=== PATIENT | female | born 1985 | race Two or more races ===

== ENCOUNTER 2021-01-11 22:03 | Inpatient (IN) | payer MEDICAID, OTHER ==
[~2021-01-11] VITALS: Ht 154.9 cm; Wt 81.2 kg
[2021-01-11] MEDS ORDERED: DEXAMETHASONE 4 MG TABLET ONE (22:27)
[2021-01-11] MEDS ORDERED: ONDANSETRON ODT 8 MG ONE (22:28)
[2021-01-11] MEDS ORDERED: ACETAMINOPHEN 500 MG TABLET ONE (22:28)
[2021-01-11] MEDS ORDERED: ONDANSETRON ODT 8 MG PO ONE (22:30)
[2021-01-11] MEDS ORDERED: DEXAMETHASONE 4 MG TABLET PO ONE (22:30)
[2021-01-11] MEDS ORDERED: ACETAMINOPHEN 500 MG TABLET PO ONE (22:30)
[2021-01-11] MEDS ORDERED: SODIUM CHLORIDE FLUSH 10ML SYR IVF ONE (23:00)
[2021-01-11] MEDS ORDERED: AZITHROMYCIN 500 MG in SODIUM CHLORIDE 0.9% 250 ML IVPB ONE (23:00)
[2021-01-11] MEDS ORDERED: SODIUM CHLORIDE 0.9% 1,000ML IVBOLUS ONE (23:00)
[2021-01-11] MEDS ORDERED: CEFTRIAXONE 1,000 MG in DEXTROSE 5% 50 ML IVPB ONE (23:00)
--- NOTE | 2021-01-11 23:15 | NUR ---
IV STARTED, 1ST SET OF BLOOD CULTURES AND LABS DRAWN. IV FLUIDS INFUSING. PT TOLERATING WELL. VSS AND WILL CONT TO MONITOR.
[2021-01-11 23:42] LABS: BASOPHILS % (AUTO) 1 % (0-1); EOSINOPHILS % (AUTO) 0 % (1-7); LYMPHOCYTES % (AUTO) 33 % (22-44); MEAN CORPUSCULAR HEMOGLOBIN 29.5 pg (27.0-34.8); MEAN CORPUSCULAR HGB CONC 33.3 g/dL (32.4-35.8); MEAN PLATELET VOLUME 8.6 fL (7.4-10.4); MONOCYTES % (AUTO) 8 % (2-9); NEUTROPHILS % (AUTO) 58 % (42-75); PLATELET COUNT 135 x10^3/uL (130-400); RED CELL DISTRIBUTION WIDTH 13.6 % (9.6-15.2)
[2021-01-11 23:53] LABS: ALANINE AMINOTRANSFERASE 50 U/L (12-78); ALBUMIN 3.2 g/dL (3.4-5.0); ANION GAP 8 mmol/L (5-15); CALCIUM 8.4 mg/dL (8.5-10.1); CHLORIDE 103 mmol/L (98-107); CREATININE 0.75 mg/dL (0.55-1.02)
[2021-01-11 23:57] LABS: ALKALINE PHOSPHATASE 100 U/L (45-117); BILIRUBIN,TOTAL 0.6 mg/dL (0.2-1.0); TOTAL PROTEIN 7.2 g/dL (6.4-8.2)
[2021-01-12] MEDS ORDERED: PHARMACY MAY ADJ FOR RENAL FX MC PRN (02:00)
[2021-01-12] MEDS ORDERED: ONDANSETRON 2MG/ML, 2ML IVPush PRN (02:00)
[2021-01-12] MEDS ORDERED: PROCHLORPERAZINE 10MG TABLET PO PRN (02:00)
[2021-01-12] MEDS ORDERED: MELATONIN 5 MG TABLET PO PRN (02:00)
[2021-01-12 02:30] VITALS: BP 106/72
[2021-01-12] MEDS: methylPREDNISolone SOD SUCC 40 MG/ML IVPush SCH ×4 (02:45→20:17)
[2021-01-12] MEDS: ENOXAPARIN 40 MG/0.4 ML SQ SCH (02:46)
[2021-01-12 03:11] LABS: ALANINE AMINOTRANSFERASE 59 U/L (12-78); ALBUMIN 2.9 g/dL (3.4-5.0); ANION GAP 7 mmol/L (5-15); CALCIUM 7.5 mg/dL (8.5-10.1); CHLORIDE 106 mmol/L (98-107); CREATININE 0.69 mg/dL (0.55-1.02)
[2021-01-12 03:16] LABS: TROPONIN I < 0.015 ng/mL (0.000-0.045)
[2021-01-12 03:18] LABS: ALKALINE PHOSPHATASE 102 U/L (45-117); BILIRUBIN,TOTAL 0.5 mg/dL (0.2-1.0); TOTAL PROTEIN 6.8 g/dL (6.4-8.2)
[2021-01-12 03:27] LABS: BASOPHILS % (AUTO) 1 % (0-1); EOSINOPHILS % (AUTO) 0 % (1-7); LYMPHOCYTES % (AUTO) 28 % (22-44); MEAN CORPUSCULAR HEMOGLOBIN 30.1 pg (27.0-34.8); MEAN CORPUSCULAR HGB CONC 33.8 g/dL (32.4-35.8); MEAN PLATELET VOLUME 8.7 fL (7.4-10.4); MONOCYTES % (AUTO) 4 % (2-9); NEUTROPHILS % (AUTO) 68 % (42-75); PLATELET COUNT 131 x10^3/uL (130-400); RED BLOOD COUNT 4.72 x10^6/uL (3.82-5.3); RED CELL DISTRIBUTION WIDTH 13.8 % (9.6-15.2)
[2021-01-12] MEDS: ALBUTEROL-IPRATROPIUM MDI INH INH SCH ×4 (05:44→20:17)
[2021-01-12] MEDS ORDERED: ALBUTEROL-IPRATROPIUM MDI INH INH SCH (06:00)
[2021-01-12 06:51] LABS: D-DIMER 2.08 ug/mlFEU (0.00-0.52); INTERNATIONAL NORMALIZED RATIO 0.97 (0.93-1.1); PROTHROMBIN TIME 10.4 Seconds (9.6-11.5)
[2021-01-12 07:28] VITALS: BP 133/87
[2021-01-12] MEDS: ZINC SULFATE 220 MG CAPSULE PO SCH (08:21)
[2021-01-12] MEDS: ASCORBIC ACID 500 MG TABLET PO SCH ×2 (08:21→20:17)
[2021-01-12 12:00] VITALS: BP 119/76
[2021-01-12] MEDS: ACETAMINOPHEN 325 MG TABLET PO PRN (14:43)
[2021-01-12 20:00] VITALS: BP 117/75
[2021-01-13] MEDS: CEFTRIAXONE 1,000 MG in DEXTROSE 5% 50 ML IVPB SCH (00:05)
[2021-01-13 00:47] VITALS: BP 107/65
[2021-01-13] MEDS: AZITHROMYCIN 500 MG in SODIUM CHLORIDE 0.9% 250 ML IV SCH (01:01)
[2021-01-13] MEDS: ENOXAPARIN 40 MG/0.4 ML SQ SCH (02:00)
[2021-01-13] MEDS: ALBUTEROL-IPRATROPIUM MDI INH INH SCH ×4 (05:43→20:39)
[2021-01-13] MEDS: GUAIFENESIN/COD200MG-20MG/10ML LIQUID PO PRN ×3 (05:48→20:39)
[2021-01-13 06:02] LABS: HCT (SEDRATE) 41.2 % (34.6-47.8)
[2021-01-13 06:10] LABS: BASOPHILS % (AUTO) 0 % (0-1); EOSINOPHILS % (AUTO) 0 % (1-7); LYMPHOCYTES % (AUTO) 16 % (22-44); MEAN CORPUSCULAR HEMOGLOBIN 29.7 pg (27.0-34.8); MEAN CORPUSCULAR HGB CONC 33.3 g/dL (32.4-35.8); MEAN PLATELET VOLUME 8.8 fL (7.4-10.4); MONOCYTES % (AUTO) 6 % (2-9); NEUTROPHILS % (AUTO) 78 % (42-75); PLATELET COUNT 173 x10^3/uL (130-400); RED BLOOD COUNT 4.61 x10^6/uL (3.82-5.3); RED CELL DISTRIBUTION WIDTH 13.8 % (9.6-15.2)
[2021-01-13 06:29] LABS: CHLORIDE 111 mmol/L (98-107)
[2021-01-13 06:44] LABS: ALANINE AMINOTRANSFERASE 58 U/L (12-78); ALBUMIN 2.7 g/dL (3.4-5.0); ALKALINE PHOSPHATASE 92 U/L (45-117); ANION GAP 5 mmol/L (5-15); BILIRUBIN,TOTAL 0.3 mg/dL (0.2-1.0); CALCIUM 8.2 mg/dL (8.5-10.1); TOTAL PROTEIN 6.8 g/dL (6.4-8.2)
[2021-01-13 08:00] VITALS: BP 110/67
[2021-01-13] MEDS: ZINC SULFATE 220 MG CAPSULE PO SCH (08:37)
[2021-01-13] MEDS: methylPREDNISolone SOD SUCC 40 MG/ML IVPush SCH ×2 (08:38→20:39)
[2021-01-13] MEDS: ASCORBIC ACID 500 MG TABLET PO SCH ×2 (08:38→20:39)
[2021-01-13 14:00] VITALS: BP 110/67
[2021-01-13] MEDS: ALBUTEROL HFA 90 MCG/SPRAY INH SCH ×2 (16:00→20:39)
[2021-01-13] MEDS ORDERED: REMDESIVIR 200 MG in SODIUM CHLORIDE 0.9% 250 ML IVPB ONE (16:00)
[2021-01-13] MEDS ORDERED: OMNIPAQUE 350 MG/ML, 75ML BOTTLE ONE (16:51)
[2021-01-13 20:00] VITALS: BP 108/69
[2021-01-14] MEDS: CEFTRIAXONE 1,000 MG in DEXTROSE 5% 50 ML IVPB SCH (00:06)
[2021-01-14] MEDS ORDERED: PROPOFOL 10 MG/ML, 100ML IV ONE (00:42)
[2021-01-14] MEDS ORDERED: MIDAZOLAM 1 MG/ML, 5ML ONE (00:42)
[2021-01-14] MEDS ORDERED: ETOMIDATE 20 MG/10 ML ONE (00:42)
[2021-01-14] MEDS: AZITHROMYCIN 500 MG in SODIUM CHLORIDE 0.9% 250 ML IV SCH (00:58)
[2021-01-14 01:06] VITALS: BP 103/82
[2021-01-14] MEDS: ENOXAPARIN 40 MG/0.4 ML SQ SCH ×2 (01:59→20:06)
[2021-01-14] MEDS ORDERED: LORazepam 2 MG/ML, 1ML IVPush ONE (04:30)
[2021-01-14 05:36] LABS: HCT (SEDRATE) 40.5 % (34.6-47.8)
[2021-01-14 05:44] LABS: BASOPHILS % (AUTO) 0 % (0-1); EOSINOPHILS % (AUTO) 0 % (1-7); LYMPHOCYTES % (AUTO) 14 % (22-44); MEAN CORPUSCULAR HEMOGLOBIN 29.5 pg (27.0-34.8); MEAN CORPUSCULAR HGB CONC 33.2 g/dL (32.4-35.8); MEAN PLATELET VOLUME 8.3 fL (7.4-10.4); MONOCYTES % (AUTO) 7 % (2-9); NEUTROPHILS % (AUTO) 79 % (42-75); PLATELET COUNT 205 x10^3/uL (130-400); RED BLOOD COUNT 4.51 x10^6/uL (3.82-5.3); RED CELL DISTRIBUTION WIDTH 13.8 % (9.6-15.2)
[2021-01-14 05:48] LABS: CHLORIDE 104 mmol/L (98-107)
[2021-01-14 05:53] LABS: D-DIMER 7.01 ug/mlFEU (0.00-0.52); INTERNATIONAL NORMALIZED RATIO 0.96 (0.93-1.1); PROTHROMBIN TIME 10.3 Seconds (9.6-11.5)
[2021-01-14] MEDS: ALBUTEROL-IPRATROPIUM MDI INH INH SCH ×3 (06:00→16:00)
[2021-01-14] MEDS: ALBUTEROL HFA 90 MCG/SPRAY INH SCH ×3 (06:00→16:00)
[2021-01-14 06:02] LABS: ALANINE AMINOTRANSFERASE 193 U/L (12-78); ALBUMIN 2.6 g/dL (3.4-5.0); ALKALINE PHOSPHATASE 115 U/L (45-117); ANION GAP 7 mmol/L (5-15); BILIRUBIN,TOTAL 0.4 mg/dL (0.2-1.0); CALCIUM 7.7 mg/dL (8.5-10.1); CREATININE 0.62 mg/dL (0.55-1.02); TOTAL PROTEIN 6.6 g/dL (6.4-8.2)
[2021-01-14 07:13] VITALS: BP 117/75
[2021-01-14] MEDS ORDERED: DEXAMETHASONE 4 MG/ML, 1ML IVPush ONE (08:00)
[2021-01-14] MEDS ORDERED: ENOXAPARIN 40 MG/0.4 ML SQ SCH (08:00)
[2021-01-14] MEDS ORDERED: FUROSEMIDE 40 MG/4 ML IV ONE (08:00)
[2021-01-14] MEDS ORDERED: PHARMACY MAY ADJ FOR RENAL FX MC SCH (08:30)
[2021-01-14] MEDS ORDERED: LIDOCAINE-MPF 1%, 2ML ENDO PRN (08:30)
[2021-01-14] MEDS: ZINC SULFATE 220 MG CAPSULE PO SCH (09:00)
[2021-01-14] MEDS: ASCORBIC ACID 500 MG TABLET PO SCH ×2 (09:00→20:06)
[2021-01-14] MEDS: PROPOFOL 100 ML IV PRN ×2 (10:00→13:23)
[2021-01-14 10:10] LABS: MICROSCOPIC INDICATED
[2021-01-14] MEDS ORDERED: ACETAMINOPHEN 650 MG/20.3 ML UDC ONE (10:15)
[2021-01-14] MEDS ORDERED: MIDAZOLAM HCL 50 MG in SODIUM CHLORIDE 0.9% 40 ML IV PRN (10:30)
[2021-01-14] MEDS: ACETAMINOPHEN 650 MG/20.3 ML UDC PO PRN (11:44)
[2021-01-14] MEDS ORDERED: ETOMIDATE 20 MG/10 ML IVPush ONE (13:00)
[2021-01-14] MEDS: FAMOTIDINE 20 MG/2 ML IV SCH ×2 (13:23→20:05)
[2021-01-14] MEDS: POTASSIUM CHLORIDE 20 MEQ PACKET PO SCH ×2 (13:24→17:23)
[2021-01-14] MEDS: MIDAZOLAM HCL 100 MG in SODIUM CHLORIDE 0.9% 80 ML IV PRN (16:08)
[2021-01-14] MEDS ORDERED: FUROSEMIDE 40 MG/4 ML IV SCH (17:00)
[2021-01-14] MEDS: REMDESIVIR 100 MG in SODIUM CHLORIDE 0.9% 250 ML IVPB SCH (17:22)
[2021-01-14] MEDS: FUROSEMIDE 40 MG/4 ML IV SCH (20:05)
[2021-01-14] MEDS: NOREPINEPHRINE 8 MG in SODIUM CHLORIDE 0.9% 242 ML IV PRN (21:00)
[2021-01-14] MEDS ORDERED: ATROPINE SYRINGE 0.1 MG/ML, 10ML ONE (22:27)
[2021-01-15] MEDS: CEFTRIAXONE 1,000 MG in DEXTROSE 5% 50 ML IVPB SCH
[2021-01-15 03:46] LABS: MEAN CORPUSCULAR HEMOGLOBIN 29.4 pg (27.0-34.8); MEAN CORPUSCULAR HGB CONC 33.3 g/dL (32.4-35.8); MEAN PLATELET VOLUME 7.8 fL (7.4-10.4); PLATELET COUNT 245 x10^3/uL (130-400); RED BLOOD COUNT 4.42 x10^6/uL (3.82-5.3); RED CELL DISTRIBUTION WIDTH 13.6 % (9.6-15.2)
[2021-01-15 03:58] LABS: ALANINE AMINOTRANSFERASE 162 U/L (12-78); ALBUMIN 2.4 g/dL (3.4-5.0); ANION GAP 5 mmol/L (5-15); CALCIUM 7.5 mg/dL (8.5-10.1); CHLORIDE 106 mmol/L (98-107); CREATININE 0.67 mg/dL (0.55-1.02)
[2021-01-15 04:04] LABS: ALKALINE PHOSPHATASE 112 U/L (45-117); BILIRUBIN,TOTAL 0.4 mg/dL (0.2-1.0); TOTAL PROTEIN 6.3 g/dL (6.4-8.2)
[2021-01-15 04:32] LABS: BAND#(MANUAL) 0.91 x10^3/uL; BANDS%(MANUAL) 7 % (0-7); LYMPH#(MANUAL) 1.56 x10^3/uL (1-3.4); LYMPHS% (MANUAL) 12 % (22-44); METAMYELOCYTES# (MANUAL) 0.13 x10^3/uL (0-0); METAMYELOCYTES% (MANUAL) 1 % (0-1); MONOS#(MANUAL) 0.52 x10^3/uL (0.3-2.7); MONOS% (MANUAL) 4 % (2-9); MYELOCYTES# (MANUAL) 0.13 x10^3/uL (0-0); MYELOCYTES% (MANUAL) 1 % (0-0); SEG#(MANUAL) 9.75 x10^3/uL (1.8-6.8); SEGS% (MANUAL) 75 % (42-75)
[2021-01-15 04:33] LABS: <PLATELET ESTIMATE> ADEQUATE; <PLT MORPHOLOGY> NORMAL PLT MORPH; <RBC MORPHOLOGY> NORMAL
[2021-01-15] MEDS: POTASSIUM CHLORIDE 20 MEQ PACKET PO SCH (08:30)
[2021-01-15] MEDS: DEXAMETHASONE 4 MG/ML, 1ML IVPush SCH (08:30)
[2021-01-15] MEDS: ZINC SULFATE 220 MG CAPSULE PO SCH (08:30)
[2021-01-15] MEDS: AZITHROMYCIN 500 MG TABLET PO SCH (08:30)
[2021-01-15] MEDS: FUROSEMIDE 40 MG/4 ML IV SCH ×2 (08:30→19:51)
[2021-01-15] MEDS: ASCORBIC ACID 500 MG TABLET PO SCH ×2 (08:30→19:51)
[2021-01-15] MEDS: THIAMINE 100MG TABLET PO SCH (08:30)
[2021-01-15] MEDS: FAMOTIDINE 20 MG/2 ML IV SCH ×2 (08:31→19:51)
[2021-01-15] MEDS: ENOXAPARIN 40 MG/0.4 ML SQ SCH (08:32)
[2021-01-15] MEDS: CHOLECALCIFEROL 5,000u TAB PO SCH (08:32)
[2021-01-15] MEDS: AcetaZOLAMIDE INJ 500 MG IVPush SCH ×2 (08:33→19:51)
[2021-01-15] MEDS ORDERED: VASOPRESSIN 20 UNIT in SODIUM CHLORIDE 0.9% 99 ML IV PRN (09:30)
[2021-01-15] MEDS: MIDAZOLAM HCL 100 MG in SODIUM CHLORIDE 0.9% 80 ML IV PRN (09:56)
[2021-01-15] MEDS ORDERED: FILTER 0.22 MICRON IV ONE (10:30)
[2021-01-15] MEDS ORDERED: TOCILIZUMAB 600 MG in SODIUM CHLORIDE 0.9% 100 ML IVPB ONE (10:30)
--- NOTE | 2021-01-15 10:50 | NUR ---
TF per RD: Vital HP w/ end goal rate of 45 mL/hr (ON propofol); 50 mL/hr (OFF propofol). Addendum: 01/15/21 at [address] Amended: Links added.
[2021-01-15] MEDS: PROPOFOL 100 ML IV PRN (12:04)
[2021-01-15] MEDS: ACETAMINOPHEN 650 MG/20.3 ML UDC PO PRN (12:17)
[2021-01-15] MEDS: REMDESIVIR 100 MG in SODIUM CHLORIDE 0.9% 250 ML IVPB SCH (15:15)
[2021-01-15] MEDS: ENOXAPARIN 80 MG/0.8 ML SQ SCH (19:51)
[2021-01-15] MEDS ORDERED: POTASSIUM CHLORIDE 20 MEQ PACKET PO ONE (21:00)
[2021-01-16] MEDS: CEFTRIAXONE 1,000 MG in DEXTROSE 5% 50 ML IVPB SCH
[2021-01-16 04:19] LABS: BASOPHILS % (AUTO) 0 % (0-1); EOSINOPHILS % (AUTO) 0 % (1-7); LYMPHOCYTES % (AUTO) 16 % (22-44); MEAN CORPUSCULAR HEMOGLOBIN 29.5 pg (27.0-34.8); MEAN CORPUSCULAR HGB CONC 32.8 g/dL (32.4-35.8); MONOCYTES % (AUTO) 12 % (2-9); NEUTROPHILS % (AUTO) 71 % (42-75); PLATELET COUNT 312 x10^3/uL (130-400); RED BLOOD COUNT 4.63 x10^6/uL (3.82-5.3); RED CELL DISTRIBUTION WIDTH 13.9 % (9.6-15.2)
[2021-01-16 04:30] LABS: ALANINE AMINOTRANSFERASE 128 U/L (12-78); ALBUMIN 2.5 g/dL (3.4-5.0); ANION GAP 4 mmol/L (5-15); CALCIUM 7.9 mg/dL (8.5-10.1); CHLORIDE 112 mmol/L (98-107); CREATININE 0.69 mg/dL (0.55-1.02)
[2021-01-16 04:32] LABS: ALKALINE PHOSPHATASE 121 U/L (45-117); BILIRUBIN,TOTAL 0.4 mg/dL (0.2-1.0); TOTAL PROTEIN 6.9 g/dL (6.4-8.2)
[2021-01-16] MEDS ORDERED: POTASSIUM CHLORIDE 20 MEQ PACKET ONE (08:01)
[2021-01-16] MEDS: ZINC SULFATE 220 MG CAPSULE PO SCH (08:04)
[2021-01-16] MEDS: ENOXAPARIN 80 MG/0.8 ML SQ SCH ×2 (08:04→21:00)
[2021-01-16] MEDS: ASCORBIC ACID 500 MG TABLET PO SCH ×2 (08:04→20:59)
[2021-01-16] MEDS: DEXAMETHASONE 4 MG/ML, 1ML IVPush SCH (08:04)
[2021-01-16] MEDS: FUROSEMIDE 40 MG/4 ML IV SCH ×2 (08:05→20:59)
[2021-01-16] MEDS: POTASSIUM CHLORIDE 20 MEQ PACKET PO SCH ×2 (08:05→20:59)
[2021-01-16] MEDS: AZITHROMYCIN 500 MG TABLET PO SCH (08:05)
[2021-01-16] MEDS: CHOLECALCIFEROL 5,000u TAB PO SCH (08:05)
[2021-01-16] MEDS: FAMOTIDINE 20 MG/2 ML IV SCH ×2 (08:05→20:59)
[2021-01-16] MEDS: THIAMINE 100MG TABLET PO SCH (08:05)
[2021-01-16] MEDS: CEFTRIAXONE 2 GM in DEXTROSE 5% 50 ML IVPB SCH (10:48)
[2021-01-16] MEDS: DOCUSATE 50 MG/5 ML, 10ML UDC PO SCH (12:25)
[2021-01-16] MEDS: REMDESIVIR 100 MG in SODIUM CHLORIDE 0.9% 250 ML IVPB SCH (14:03)
[2021-01-16] MEDS: LACTULOSE 20 GM/30 ML UDC PO PRN (20:59)
[2021-01-16] MEDS ORDERED: BISACODYL 10 MG SUPP PR PRN (21:00)
[2021-01-16] MEDS: SENNA 176 MG/5 ML ORAL SOL PO SCH (21:00)
[2021-01-16] MEDS: MIDAZOLAM HCL 100 MG in SODIUM CHLORIDE 0.9% 80 ML IV PRN (23:12)
[2021-01-17] MEDS: PROPOFOL 100 ML IV PRN ×2 (01:00→11:07)
[2021-01-17 04:28] LABS: MEAN CORPUSCULAR HEMOGLOBIN 29.5 pg (27.0-34.8); MEAN CORPUSCULAR HGB CONC 33.1 g/dL (32.4-35.8); MEAN PLATELET VOLUME 7.9 fL (7.4-10.4); PLATELET COUNT 468 x10^3/uL (130-400); RED BLOOD COUNT 5.17 x10^6/uL (3.82-5.3); RED CELL DISTRIBUTION WIDTH 14.2 % (9.6-15.2)
[2021-01-17 04:35] LABS: ALANINE AMINOTRANSFERASE 154 U/L (12-78); ALBUMIN 2.9 g/dL (3.4-5.0); ANION GAP 6 mmol/L (5-15); CHLORIDE 109 mmol/L (98-107)
[2021-01-17 04:38] LABS: ALKALINE PHOSPHATASE 150 U/L (45-117); BILIRUBIN,TOTAL 0.4 mg/dL (0.2-1.0); CREATININE 0.84 mg/dL (0.55-1.02); TOTAL PROTEIN 7.9 g/dL (6.4-8.2); TRIGLYCERIDES 196 mg/dL (50-200)
[2021-01-17 04:53] LABS: <PLATELET ESTIMATE> ADEQUATE; <PLT MORPHOLOGY> NORMAL PLT MORPH; <RBC MORPHOLOGY> NORMAL; BAND#(MANUAL) 0.38 x10^3/uL; BANDS%(MANUAL) 2 % (0-7); LYMPH#(MANUAL) 3.78 x10^3/uL (1-3.4); LYMPHS% (MANUAL) 20 % (22-44); METAMYELOCYTES# (MANUAL) 0.57 x10^3/uL (0-0); METAMYELOCYTES% (MANUAL) 3 % (0-1); MONOS#(MANUAL) 0.95 x10^3/uL (0.3-2.7); MONOS% (MANUAL) 5 % (2-9); MYELOCYTES# (MANUAL) 0.38 x10^3/uL (0-0); MYELOCYTES% (MANUAL) 2 % (0-0); SEG#(MANUAL) 12.85 x10^3/uL (1.8-6.8); SEGS% (MANUAL) 68 % (42-75)
[2021-01-17] MEDS ORDERED: INSULIN LISPRO 100 UNITS/ML, PEN SQ-INSULIN SCH (07:00)
[2021-01-17] MEDS: AZITHROMYCIN 500 MG TABLET PO SCH (08:44)
[2021-01-17] MEDS: ZINC SULFATE 220 MG CAPSULE PO SCH (08:44)
[2021-01-17] MEDS: DEXAMETHASONE 4 MG/ML, 1ML IVPush SCH (08:44)
[2021-01-17] MEDS: DOCUSATE 50 MG/5 ML, 10ML UDC PO SCH (08:44)
[2021-01-17] MEDS: FAMOTIDINE 20 MG/2 ML IV SCH ×2 (08:44→21:41)
[2021-01-17] MEDS: ENOXAPARIN 80 MG/0.8 ML SQ SCH ×2 (08:44→21:41)
[2021-01-17] MEDS: THIAMINE 100MG TABLET PO SCH (08:44)
[2021-01-17] MEDS: ASCORBIC ACID 500 MG TABLET PO SCH ×2 (08:45→21:00)
[2021-01-17] MEDS: CHOLECALCIFEROL 5,000u TAB PO SCH (08:45)
[2021-01-17] MEDS: FUROSEMIDE 40 MG/4 ML IV SCH ×2 (08:45→21:41)
[2021-01-17] MEDS: POTASSIUM CHLORIDE 20 MEQ PACKET PO SCH ×2 (08:45→21:42)
[2021-01-17] MEDS: INSULIN LISPRO 100 UNITS/ML, PEN SQ-INSULIN SCH ×3 (08:48→21:42)
[2021-01-17] MEDS: CEFTRIAXONE 2 GM in DEXTROSE 5% 50 ML IVPB SCH (11:07)
[2021-01-17] MEDS: REMDESIVIR 100 MG in SODIUM CHLORIDE 0.9% 250 ML IVPB SCH (16:29)
[2021-01-17] MEDS: SENNA 176 MG/5 ML ORAL SOL PO SCH (21:00)
[2021-01-18] MEDS: INSULIN LISPRO 100 UNITS/ML, PEN SQ-INSULIN SCH ×4 (03:50→21:20)
[2021-01-18 04:13] LABS: MEAN CORPUSCULAR HEMOGLOBIN 29.3 pg (27.0-34.8); MEAN CORPUSCULAR HGB CONC 32.6 g/dL (32.4-35.8); MEAN PLATELET VOLUME 7.8 fL (7.4-10.4); PLATELET COUNT 524 x10^3/uL (130-400); RED BLOOD COUNT 5.37 x10^6/uL (3.82-5.3); RED CELL DISTRIBUTION WIDTH 14.2 % (9.6-15.2)
[2021-01-18 04:25] LABS: ALBUMIN 3.1 g/dL (3.4-5.0); ANION GAP 7 mmol/L (5-15); CALCIUM 9.3 mg/dL (8.5-10.1); CHLORIDE 109 mmol/L (98-107)
[2021-01-18 04:30] LABS: ALANINE AMINOTRANSFERASE 123 U/L (12-78); ALKALINE PHOSPHATASE 138 U/L (45-117); BILIRUBIN,TOTAL 0.4 mg/dL (0.2-1.0); CREATININE 1.07 mg/dL (0.55-1.02); TOTAL PROTEIN 7.9 g/dL (6.4-8.2)
[2021-01-18 05:42] LABS: BANDS%(MANUAL) 3 % (0-7); EOS% (MANUAL) 3 % (1-7); LYMPH#(MANUAL) 1.34 x10^3/uL (1-3.4); LYMPHS% (MANUAL) 8 % (22-44); METAMYELOCYTES# (MANUAL) 0.17 x10^3/uL (0-0); METAMYELOCYTES% (MANUAL) 1 % (0-1); MONOS% (MANUAL) 6 % (2-9); SEG#(MANUAL) 13.19 x10^3/uL (1.8-6.8); SEGS% (MANUAL) 79 % (42-75)
[2021-01-18 05:43] LABS: <PLATELET ESTIMATE> INCREASED; <PLT MORPHOLOGY> NORMAL PLT MORPH; <RBC MORPHOLOGY> NORMAL
[2021-01-18] MEDS: DOCUSATE 50 MG/5 ML, 10ML UDC PO SCH (09:00)
[2021-01-18] MEDS ORDERED: FUROSEMIDE 20 MG/2 ML ONE (10:33)
[2021-01-18] MEDS: ZINC SULFATE 220 MG CAPSULE PO SCH (10:36)
[2021-01-18] MEDS: ENOXAPARIN 80 MG/0.8 ML SQ SCH ×2 (10:36→21:12)
[2021-01-18] MEDS: ASCORBIC ACID 500 MG TABLET PO SCH ×2 (10:36→21:12)
[2021-01-18] MEDS: FAMOTIDINE 20 MG/2 ML IV SCH ×2 (10:36→21:12)
[2021-01-18] MEDS: DEXAMETHASONE 4 MG/ML, 1ML IVPush SCH (10:37)
[2021-01-18] MEDS: CHOLECALCIFEROL 5,000u TAB PO SCH (10:37)
[2021-01-18] MEDS: FUROSEMIDE 40 MG/4 ML IV SCH ×2 (10:37→21:12)
[2021-01-18] MEDS: THIAMINE 100MG TABLET PO SCH (10:59)
[2021-01-18] MEDS ORDERED: CEFTRIAXONE 2 GM in DEXTROSE 5% 50 ML IVPB SCH (11:00)
[2021-01-18] MEDS: PROPOFOL 100 ML IV PRN ×3 (11:33→23:39)
[2021-01-19] MEDS: PROPOFOL 100 ML IV PRN ×4 (03:25→20:08)
[2021-01-19] MEDS: INSULIN LISPRO 100 UNITS/ML, PEN SQ-INSULIN SCH ×4 (04:16→20:00)
[2021-01-19 04:26] LABS: MEAN CORPUSCULAR HEMOGLOBIN 29.8 pg (27.0-34.8); MEAN CORPUSCULAR HGB CONC 33.4 g/dL (32.4-35.8); MEAN PLATELET VOLUME 7.9 fL (7.4-10.4); PLATELET COUNT 565 x10^3/uL (130-400); RED BLOOD COUNT 5.59 x10^6/uL (3.82-5.3)
[2021-01-19 04:38] LABS: ALANINE AMINOTRANSFERASE 84 U/L (12-78); ALBUMIN 3.1 g/dL (3.4-5.0); ANION GAP 9 mmol/L (5-15); CHLORIDE 106 mmol/L (98-107); CREATININE 0.98 mg/dL (0.55-1.02)
[2021-01-19 04:40] LABS: ALKALINE PHOSPHATASE 119 U/L (45-117); BILIRUBIN,TOTAL 0.5 mg/dL (0.2-1.0); TOTAL PROTEIN 7.8 g/dL (6.4-8.2)
[2021-01-19 05:48] LABS: BAND#(MANUAL) 0.22 x10^3/uL; BANDS%(MANUAL) 1 % (0-7); EOS% (MANUAL) 6 % (1-7); LYMPH#(MANUAL) 2.59 x10^3/uL (1-3.4); LYMPHS% (MANUAL) 12 % (22-44); MONOS#(MANUAL) 0.65 x10^3/uL (0.3-2.7); MONOS% (MANUAL) 3 % (2-9); SEG#(MANUAL) 16.85 x10^3/uL (1.8-6.8); SEGS% (MANUAL) 78 % (42-75)
[2021-01-19 05:50] LABS: <PLATELET ESTIMATE> INCREASED; <RBC MORPHOLOGY> NORMAL
[2021-01-19 05:51] LABS: <PLT MORPHOLOGY> NORMAL PLT MORPH
[2021-01-19] MEDS ORDERED: INSULIN GLARGINE 100 UNITS/ML, PEN SQ-INSULIN SCH ×2 (09:00→21:00)
[2021-01-19] MEDS: FUROSEMIDE 40 MG/4 ML IV SCH (09:34)
[2021-01-19] MEDS: FAMOTIDINE 20 MG/2 ML IV SCH ×2 (09:34→19:58)
[2021-01-19] MEDS: DEXAMETHASONE 4 MG/ML, 1ML IVPush SCH (09:34)
[2021-01-19] MEDS: DOCUSATE 50 MG/5 ML, 10ML UDC PO SCH (09:34)
[2021-01-19] MEDS: ZINC SULFATE 220 MG CAPSULE PO SCH (09:35)
[2021-01-19] MEDS: THIAMINE 100MG TABLET PO SCH (09:35)
[2021-01-19] MEDS: ENOXAPARIN 80 MG/0.8 ML SQ SCH ×2 (09:35→19:58)
[2021-01-19] MEDS: ASCORBIC ACID 500 MG TABLET PO SCH ×2 (09:35→19:59)
[2021-01-19] MEDS: CHOLECALCIFEROL 5,000u TAB PO SCH (09:35)
[2021-01-20] MEDS: PROPOFOL 100 ML IV PRN ×2 (00:57→04:02)
[2021-01-20] MEDS: INSULIN LISPRO 100 UNITS/ML, PEN SQ-INSULIN SCH ×6 (03:13→21:59)
[2021-01-20 03:47] LABS: MEAN CORPUSCULAR HGB CONC 33.6 g/dL (32.4-35.8); MEAN PLATELET VOLUME 8.3 fL (7.4-10.4); PLATELET COUNT 477 x10^3/uL (130-400); RED BLOOD COUNT 5.16 x10^6/uL (3.82-5.3); RED CELL DISTRIBUTION WIDTH 13.8 % (9.6-15.2)
[2021-01-20 04:03] LABS: ALBUMIN 1.9 g/dL (3.4-5.0); ANION GAP 5 mmol/L (5-15); CALCIUM 9.1 mg/dL (8.5-10.1); CHLORIDE 105 mmol/L (98-107)
[2021-01-20 04:08] LABS: ALANINE AMINOTRANSFERASE 58 U/L (12-78); ALKALINE PHOSPHATASE 103 U/L (45-117); BILIRUBIN,TOTAL 0.6 mg/dL (0.2-1.0); C-REACTIVE PROTEIN, QUANT 0.38 mg/dL (0.02-0.49); CREATININE 0.93 mg/dL (0.55-1.02); TRIGLYCERIDES 526 mg/dL (50-200)
[2021-01-20 05:46] LABS: BAND#(MANUAL) 0.17 x10^3/uL; BANDS%(MANUAL) 1 % (0-7); EOS#(MANUAL) 0.84 x10^3/uL (0.0-0.4); EOS% (MANUAL) 5 % (1-7); LYMPH#(MANUAL) 1.01 x10^3/uL (1-3.4); LYMPHS% (MANUAL) 6 % (22-44); METAMYELOCYTES# (MANUAL) 0.17 x10^3/uL (0-0); METAMYELOCYTES% (MANUAL) 1 % (0-1); MONOS#(MANUAL) 0.17 x10^3/uL (0.3-2.7); MONOS% (MANUAL) 1 % (2-9); MYELOCYTES# (MANUAL) 0.17 x10^3/uL (0-0); MYELOCYTES% (MANUAL) 1 % (0-0); SEG#(MANUAL) 14.28 x10^3/uL (1.8-6.8); SEGS% (MANUAL) 85 % (42-75)
[2021-01-20 05:47] LABS: <PLATELET ESTIMATE> INCREASED; <PLT MORPHOLOGY> NORMAL PLT MORPH; <RBC MORPHOLOGY> NORMAL
[2021-01-20] MEDS: MIDAZOLAM HCL 50 MG in SODIUM CHLORIDE 0.9% 40 ML IV PRN (06:28)
[2021-01-20] MEDS: ENOXAPARIN 80 MG/0.8 ML SQ SCH ×2 (10:09→21:58)
[2021-01-20] MEDS: DOCUSATE 50 MG/5 ML, 10ML UDC PO SCH (10:10)
[2021-01-20] MEDS: ASCORBIC ACID 500 MG TABLET PO SCH ×2 (10:10→21:57)
[2021-01-20] MEDS: CHOLECALCIFEROL 5,000u TAB PO SCH (10:10)
[2021-01-20] MEDS: ZINC SULFATE 220 MG CAPSULE PO SCH (10:10)
[2021-01-20] MEDS: THIAMINE 100MG TABLET PO SCH (10:10)
[2021-01-20] MEDS: FUROSEMIDE 40 MG/4 ML IV SCH (10:12)
[2021-01-20] MEDS: DEXAMETHASONE 4 MG/ML, 1ML IVPush SCH (10:12)
[2021-01-20] MEDS: FAMOTIDINE 20 MG/2 ML IV SCH ×2 (10:12→21:57)
[2021-01-20] MEDS: INSULIN GLARGINE 100 UNITS/ML, PEN SQ-INSULIN SCH ×2 (10:18→21:59)
[2021-01-21] MEDS: MIDAZOLAM HCL 50 MG in SODIUM CHLORIDE 0.9% 40 ML IV PRN ×2 (02:27→12:46)
[2021-01-21 03:44] LABS: MEAN CORPUSCULAR HEMOGLOBIN 29.5 pg (27.0-34.8); MEAN CORPUSCULAR HGB CONC 32.6 g/dL (32.4-35.8); MEAN PLATELET VOLUME 7.9 fL (7.4-10.4); PLATELET COUNT 433 x10^3/uL (130-400); RED BLOOD COUNT 5.04 x10^6/uL (3.82-5.3)
[2021-01-21 03:53] LABS: ALBUMIN 2.8 g/dL (3.4-5.0); ANION GAP 2 mmol/L (5-15); CALCIUM 9.1 mg/dL (8.5-10.1); CHLORIDE 105 mmol/L (98-107)
[2021-01-21 03:57] LABS: ALANINE AMINOTRANSFERASE 44 U/L (12-78); ALKALINE PHOSPHATASE 92 U/L (45-117); BILIRUBIN,TOTAL 0.8 mg/dL (0.2-1.0); CREATININE 0.94 mg/dL (0.55-1.02); TOTAL PROTEIN 6.9 g/dL (6.4-8.2)
[2021-01-21] MEDS: INSULIN LISPRO 100 UNITS/ML, PEN SQ-INSULIN SCH ×8 (04:13→21:09)
[2021-01-21 04:30] LABS: <PLATELET ESTIMATE> INCREASED; <PLT MORPHOLOGY> NORMAL PLT MORPH; <RBC MORPHOLOGY> NORMAL; BAND#(MANUAL) 0.69 x10^3/uL; BANDS%(MANUAL) 4 % (0-7); EOS#(MANUAL) 0.17 x10^3/uL (0.0-0.4); EOS% (MANUAL) 1 % (1-7); LYMPH#(MANUAL) 1.38 x10^3/uL (1-3.4); LYMPHS% (MANUAL) 8 % (22-44); METAMYELOCYTES# (MANUAL) 0.17 x10^3/uL (0-0); METAMYELOCYTES% (MANUAL) 1 % (0-1); MONOS#(MANUAL) 0.35 x10^3/uL (0.3-2.7); MONOS% (MANUAL) 2 % (2-9); SEG#(MANUAL) 14.53 x10^3/uL (1.8-6.8); SEGS% (MANUAL) 84 % (42-75)
[2021-01-21] MEDS: DOCUSATE 50 MG/5 ML, 10ML UDC PO SCH (09:00)
[2021-01-21] MEDS: ASCORBIC ACID 500 MG TABLET PO SCH ×2 (10:44→21:07)
[2021-01-21] MEDS: CHOLECALCIFEROL 5,000u TAB PO SCH (10:44)
[2021-01-21] MEDS: ZINC SULFATE 220 MG CAPSULE PO SCH (10:44)
[2021-01-21] MEDS: FUROSEMIDE 40 MG/4 ML IV SCH (10:45)
[2021-01-21] MEDS: ENOXAPARIN 80 MG/0.8 ML SQ SCH ×2 (10:45→21:08)
[2021-01-21] MEDS: FAMOTIDINE 20 MG/2 ML IV SCH ×2 (10:45→21:07)
[2021-01-21] MEDS: DEXAMETHASONE 4 MG/ML, 1ML IVPush SCH (10:45)
[2021-01-21] MEDS: THIAMINE 100MG TABLET PO SCH (10:45)
[2021-01-21] MEDS: INSULIN GLARGINE 100 UNITS/ML, PEN SQ-INSULIN SCH ×2 (10:46→21:08)
[2021-01-21 13:04] LABS: MICROSCOPIC AUTO
[2021-01-21] MEDS: ACETAMINOPHEN 650 MG/20.3 ML UDC PO PRN (19:40)
[2021-01-22] MEDS: FENTANYL PF 100 MCG/2ML IVPush PRN ×2 (00:29→15:04)
[2021-01-22] MEDS: MIDAZOLAM HCL 50 MG in SODIUM CHLORIDE 0.9% 40 ML IV PRN ×2 (01:28→15:04)
[2021-01-22] MEDS: ACETAMINOPHEN 650 MG/20.3 ML UDC PO PRN ×2 (01:28→22:34)
[2021-01-22] MEDS: INSULIN LISPRO 100 UNITS/ML, PEN SQ-INSULIN SCH ×8 (03:26→22:11)
[2021-01-22 03:36] LABS: MEAN CORPUSCULAR HEMOGLOBIN 29.5 pg (27.0-34.8); MEAN CORPUSCULAR HGB CONC 32.9 g/dL (32.4-35.8); PLATELET COUNT 397 x10^3/uL (130-400); RED BLOOD COUNT 4.63 x10^6/uL (3.82-5.3)
[2021-01-22 03:45] LABS: ALANINE AMINOTRANSFERASE 36 U/L (12-78); ALBUMIN 2.6 g/dL (3.4-5.0); ANION GAP 6 mmol/L (5-15); CALCIUM 8.6 mg/dL (8.5-10.1); CHLORIDE 104 mmol/L (98-107); CREATININE 0.93 mg/dL (0.55-1.02)
[2021-01-22 03:47] LABS: ALKALINE PHOSPHATASE 82 U/L (45-117); BILIRUBIN,TOTAL 0.8 mg/dL (0.2-1.0); TOTAL PROTEIN 6.7 g/dL (6.4-8.2)
[2021-01-22 04:10] LABS: BAND#(MANUAL) 0.17 x10^3/uL; BANDS%(MANUAL) 1 % (0-7); EOS#(MANUAL) 0.34 x10^3/uL (0.0-0.4); EOS% (MANUAL) 2 % (1-7); LYMPH#(MANUAL) 2.87 x10^3/uL (1-3.4); LYMPHS% (MANUAL) 17 % (22-44); METAMYELOCYTES# (MANUAL) 0.34 x10^3/uL (0-0); METAMYELOCYTES% (MANUAL) 2 % (0-1); MONOS#(MANUAL) 0.17 x10^3/uL (0.3-2.7); MONOS% (MANUAL) 1 % (2-9); MYELOCYTES# (MANUAL) 0.34 x10^3/uL (0-0); MYELOCYTES% (MANUAL) 2 % (0-0); REACTIVE LYMPHS # (MANUAL) 0.17 x10^3/uL (0-0); REACTIVE LYMPHS % (MANUAL) 1 % (0-0); SEGS% (MANUAL) 74 % (42-75)
[2021-01-22 04:11] LABS: <PLATELET ESTIMATE> ADEQUATE; <PLT MORPHOLOGY> NORMAL PLT MORPH; <RBC MORPHOLOGY> NORMAL
[2021-01-22] MEDS: DOCUSATE 50 MG/5 ML, 10ML UDC PO SCH (09:00)
[2021-01-22] MEDS: THIAMINE 100MG TABLET PO SCH (09:30)
[2021-01-22] MEDS: ZINC SULFATE 220 MG CAPSULE PO SCH (09:30)
[2021-01-22] MEDS: CHOLECALCIFEROL 5,000u TAB PO SCH (09:30)
[2021-01-22] MEDS: ASCORBIC ACID 500 MG TABLET PO SCH ×2 (09:30→22:10)
[2021-01-22] MEDS: DEXAMETHASONE 4 MG/ML, 1ML IVPush SCH (09:31)
[2021-01-22] MEDS: FUROSEMIDE 40 MG/4 ML IV SCH (09:31)
[2021-01-22] MEDS: FAMOTIDINE 20 MG/2 ML IV SCH ×2 (09:31→22:10)
[2021-01-22] MEDS: ENOXAPARIN 80 MG/0.8 ML SQ SCH ×2 (09:32→22:10)
[2021-01-22] MEDS: INSULIN GLARGINE 100 UNITS/ML, PEN SQ-INSULIN SCH ×2 (09:39→22:11)
[2021-01-22] MEDS: ACETAMINOPHEN 325 MG TABLET PO PRN (15:11)
[2021-01-23] MEDS: INSULIN LISPRO 100 UNITS/ML, PEN SQ-INSULIN SCH ×8 (03:57→22:16)
[2021-01-23 04:17] LABS: MEAN CORPUSCULAR HEMOGLOBIN 29.3 pg (27.0-34.8); MEAN CORPUSCULAR HGB CONC 32.6 g/dL (32.4-35.8); MEAN PLATELET VOLUME 8.6 fL (7.4-10.4); PLATELET COUNT 361 x10^3/uL (130-400); RED BLOOD COUNT 4.54 x10^6/uL (3.82-5.3); RED CELL DISTRIBUTION WIDTH 13.9 % (9.6-15.2)
[2021-01-23 04:27] LABS: ALANINE AMINOTRANSFERASE 39 U/L (12-78); ALBUMIN 2.7 g/dL (3.4-5.0); ANION GAP 4 mmol/L (5-15); CALCIUM 8.8 mg/dL (8.5-10.1); CHLORIDE 105 mmol/L (98-107); CREATININE 0.73 mg/dL (0.55-1.02)
[2021-01-23 04:29] LABS: ALKALINE PHOSPHATASE 71 U/L (45-117); BILIRUBIN,TOTAL 0.9 mg/dL (0.2-1.0); TOTAL PROTEIN 6.7 g/dL (6.4-8.2); TRIGLYCERIDES 209 mg/dL (50-200)
[2021-01-23 04:55] LABS: BAND#(MANUAL) 0.28 x10^3/uL; BANDS%(MANUAL) 2 % (0-7); LYMPH#(MANUAL) 2.68 x10^3/uL (1-3.4); LYMPHS% (MANUAL) 19 % (22-44); METAMYELOCYTES# (MANUAL) 0.14 x10^3/uL (0-0); METAMYELOCYTES% (MANUAL) 1 % (0-1); MONOS#(MANUAL) 0.71 x10^3/uL (0.3-2.7); MONOS% (MANUAL) 5 % (2-9); POLYCHROMASIA 1+; SEG#(MANUAL) 10.29 x10^3/uL (1.8-6.8); SEGS% (MANUAL) 73 % (42-75)
[2021-01-23 04:56] LABS: <PLATELET ESTIMATE> ADEQUATE; <PLT MORPHOLOGY> NORMAL PLT MORPH
[2021-01-23] MEDS: MIDAZOLAM HCL 50 MG in SODIUM CHLORIDE 0.9% 40 ML IV PRN ×2 (05:53→18:14)
[2021-01-23] MEDS: INSULIN GLARGINE 100 UNITS/ML, PEN SQ-INSULIN SCH ×2 (07:49→22:17)
[2021-01-23] MEDS: DOCUSATE 50 MG/5 ML, 10ML UDC PO SCH (09:26)
[2021-01-23] MEDS: FAMOTIDINE 20 MG/2 ML IV SCH ×2 (09:26→22:14)
[2021-01-23] MEDS: FUROSEMIDE 40 MG/4 ML IV SCH (09:26)
[2021-01-23] MEDS: DEXAMETHASONE 4 MG/ML, 1ML IVPush SCH (09:26)
[2021-01-23] MEDS: THIAMINE 100MG TABLET PO SCH (09:27)
[2021-01-23] MEDS: ENOXAPARIN 80 MG/0.8 ML SQ SCH ×2 (09:28→22:14)
[2021-01-23] MEDS: CHOLECALCIFEROL 5,000u TAB PO SCH (09:28)
[2021-01-23] MEDS: ACETAMINOPHEN 650 MG/20.3 ML UDC PO PRN ×2 (11:05→19:36)
[2021-01-23] MEDS: FENTANYL PF 100 MCG/2ML IVPush PRN (16:00)
[2021-01-24] MEDS: INSULIN LISPRO 100 UNITS/ML, PEN SQ-INSULIN SCH ×5 (04:14→22:43)
[2021-01-24 04:29] LABS: BASOPHILS % (AUTO) 1 % (0-1); EOSINOPHILS % (AUTO) 1 % (1-7); LYMPHOCYTES % (AUTO) 20 % (22-44); MEAN CORPUSCULAR HGB CONC 33.3 g/dL (32.4-35.8); MEAN PLATELET VOLUME 9.1 fL (7.4-10.4); MONOCYTES % (AUTO) 5 % (2-9); NEUTROPHILS % (AUTO) 73 % (42-75); PLATELET COUNT 350 x10^3/uL (130-400); RED BLOOD COUNT 4.28 x10^6/uL (3.82-5.3); RED CELL DISTRIBUTION WIDTH 13.7 % (9.6-15.2)
[2021-01-24 04:34] LABS: ALANINE AMINOTRANSFERASE 93 U/L (12-78); ALBUMIN 2.7 g/dL (3.4-5.0); ANION GAP 5 mmol/L (5-15); CALCIUM 8.7 mg/dL (8.5-10.1); CHLORIDE 105 mmol/L (98-107); CREATININE 0.82 mg/dL (0.55-1.02)
[2021-01-24 04:37] LABS: ALKALINE PHOSPHATASE 67 U/L (45-117); TOTAL PROTEIN 6.7 g/dL (6.4-8.2)
[2021-01-24] MEDS: DEXAMETHASONE 4 MG/ML, 1ML IVPush SCH (08:47)
[2021-01-24] MEDS: FAMOTIDINE 20 MG/2 ML IV SCH ×2 (08:47→19:57)
[2021-01-24] MEDS: DOCUSATE 50 MG/5 ML, 10ML UDC PO SCH (08:48)
[2021-01-24] MEDS: THIAMINE 100MG TABLET PO SCH (08:48)
[2021-01-24] MEDS: CHOLECALCIFEROL 5,000u TAB PO SCH (08:48)
[2021-01-24] MEDS: FUROSEMIDE 40 MG/4 ML IV SCH (08:48)
[2021-01-24] MEDS: ENOXAPARIN 80 MG/0.8 ML SQ SCH ×2 (08:49→19:57)
[2021-01-24] MEDS: MIDAZOLAM HCL 50 MG in SODIUM CHLORIDE 0.9% 40 ML IV PRN (10:04)
[2021-01-24] MEDS: INSULIN GLARGINE 100 UNITS/ML, PEN SQ-INSULIN SCH ×2 (11:24→22:43)
[2021-01-24] MEDS: ACETAMINOPHEN 650 MG/20.3 ML UDC PO PRN (19:57)
[2021-01-25] MEDS: FENTANYL PF 100 MCG/2ML IVPush PRN ×2 (01:12→20:31)
[2021-01-25] MEDS: MIDAZOLAM HCL 50 MG in SODIUM CHLORIDE 0.9% 40 ML IV PRN ×3 (01:15→15:28)
[2021-01-25] MEDS: ACETAMINOPHEN 650 MG/20.3 ML UDC PO PRN ×3 (01:32→18:26)
[2021-01-25 04:09] LABS: BASOPHILS % (AUTO) 0 % (0-1); EOSINOPHILS % (AUTO) 2 % (1-7); LYMPHOCYTES % (AUTO) 24 % (22-44); MEAN CORPUSCULAR HEMOGLOBIN 29.7 pg (27.0-34.8); MEAN CORPUSCULAR HGB CONC 32.6 g/dL (32.4-35.8); MEAN PLATELET VOLUME 8.8 fL (7.4-10.4); MONOCYTES % (AUTO) 5 % (2-9); NEUTROPHILS % (AUTO) 69 % (42-75); PLATELET COUNT 350 x10^3/uL (130-400); RED BLOOD COUNT 4.07 x10^6/uL (3.82-5.3); RED CELL DISTRIBUTION WIDTH 13.7 % (9.6-15.2)
[2021-01-25 04:16] LABS: ALBUMIN 2.5 g/dL (3.4-5.0); ANION GAP 5 mmol/L (5-15); CALCIUM 8.4 mg/dL (8.5-10.1); CHLORIDE 105 mmol/L (98-107)
[2021-01-25 04:19] LABS: ALANINE AMINOTRANSFERASE 84 U/L (12-78); ALKALINE PHOSPHATASE 59 U/L (45-117); BILIRUBIN,TOTAL 0.8 mg/dL (0.2-1.0); TOTAL PROTEIN 6.4 g/dL (6.4-8.2)
[2021-01-25] MEDS: INSULIN LISPRO 100 UNITS/ML, PEN SQ-INSULIN SCH ×4 (04:47→23:09)
[2021-01-25] MEDS: DOCUSATE 50 MG/5 ML, 10ML UDC PO SCH (08:38)
[2021-01-25] MEDS: DEXAMETHASONE 4 MG/ML, 1ML IVPush SCH (08:38)
[2021-01-25] MEDS: FAMOTIDINE 20 MG/2 ML IV SCH ×2 (08:38→20:31)
[2021-01-25] MEDS: ENOXAPARIN 80 MG/0.8 ML SQ SCH ×2 (08:39→20:31)
[2021-01-25] MEDS: FUROSEMIDE 40 MG/4 ML IV SCH (08:39)
[2021-01-25] MEDS: POTASSIUM CHLORIDE 20 MEQ PACKET PO SCH (11:40)
[2021-01-25] MEDS: INSULIN GLARGINE 100 UNITS/ML, PEN SQ-INSULIN SCH ×2 (11:43→23:09)
[2021-01-26] MEDS: ACETAMINOPHEN 650 MG/20.3 ML UDC PO PRN ×2 (01:13→15:59)
[2021-01-26] MEDS: FENTANYL PF 100 MCG/2ML IVPush PRN ×2 (01:13→06:35)
[2021-01-26] MEDS: INSULIN LISPRO 100 UNITS/ML, PEN SQ-INSULIN SCH ×4 (03:45→22:32)
[2021-01-26 04:26] LABS: BASOPHILS % (AUTO) 1 % (0-1); EOSINOPHILS % (AUTO) 4 % (1-7); LYMPHOCYTES % (AUTO) 23 % (22-44); MEAN CORPUSCULAR HEMOGLOBIN 29.7 pg (27.0-34.8); MEAN CORPUSCULAR HGB CONC 32.7 g/dL (32.4-35.8); MEAN PLATELET VOLUME 9.6 fL (7.4-10.4); MONOCYTES % (AUTO) 4 % (2-9); NEUTROPHILS % (AUTO) 69 % (42-75); PLATELET COUNT 316 x10^3/uL (130-400); RED BLOOD COUNT 3.71 x10^6/uL (3.82-5.3); RED CELL DISTRIBUTION WIDTH 13.9 % (9.6-15.2)
[2021-01-26 04:40] LABS: CALCIUM 8.4 mg/dL (8.5-10.1); CHLORIDE 107 mmol/L (98-107)
[2021-01-26 04:45] LABS: ALANINE AMINOTRANSFERASE 109 U/L (12-78); ALBUMIN 2.4 g/dL (3.4-5.0); ALKALINE PHOSPHATASE 51 U/L (45-117); ANION GAP 5 mmol/L (5-15); BILIRUBIN,TOTAL 0.9 mg/dL (0.2-1.0); CREATININE 0.94 mg/dL (0.55-1.02); TOTAL PROTEIN 6.4 g/dL (6.4-8.2); TRIGLYCERIDES 213 mg/dL (50-200)
[2021-01-26] MEDS: POTASSIUM CHLORIDE 20 MEQ PACKET PO SCH (07:36)
[2021-01-26] MEDS: MIDAZOLAM HCL 50 MG in SODIUM CHLORIDE 0.9% 40 ML IV PRN ×2 (07:36→11:12)
[2021-01-26] MEDS: DEXAMETHASONE 4 MG/ML, 1ML IVPush SCH (07:37)
[2021-01-26] MEDS: DOCUSATE 50 MG/5 ML, 10ML UDC PO SCH (07:37)
[2021-01-26] MEDS: FUROSEMIDE 40 MG/4 ML IV SCH (07:37)
[2021-01-26] MEDS: FAMOTIDINE 20 MG/2 ML IV SCH ×2 (07:37→20:24)
[2021-01-26] MEDS: ENOXAPARIN 80 MG/0.8 ML SQ SCH ×2 (07:43→20:24)
[2021-01-26] MEDS: MEROPENEM 1 GM in SODIUM CHLORIDE 0.9% 100 ML IV SCH ×2 (10:24→17:31)
[2021-01-26] MEDS: LINEZOLID PMX 600MG/300ML 300 ML IV SCH ×2 (11:05→20:24)
[2021-01-26] MEDS: INSULIN GLARGINE 100 UNITS/ML, PEN SQ-INSULIN SCH ×2 (11:10→22:33)
[2021-01-26] MEDS ORDERED: LACTATED RINGERS 500 ML IVBOLUS ONE (15:00)
[2021-01-26] MEDS: NOREPINEPHRINE 8 MG in SODIUM CHLORIDE 0.9% 242 ML IV PRN (17:53)
[2021-01-27] MEDS: MEROPENEM 1 GM in SODIUM CHLORIDE 0.9% 100 ML IV SCH ×3 (01:19→17:44)
[2021-01-27] MEDS: FENTANYL PF 100 MCG/2ML IVPush PRN ×4 (01:19→22:25)
[2021-01-27 04:41] LABS: BASOPHILS % (AUTO) 1 % (0-1); EOSINOPHILS % (AUTO) 6 % (1-7); LYMPHOCYTES % (AUTO) 20 % (22-44); MEAN CORPUSCULAR HEMOGLOBIN 30.7 pg (27.0-34.8); MEAN CORPUSCULAR HGB CONC 33.4 g/dL (32.4-35.8); MONOCYTES % (AUTO) 4 % (2-9); NEUTROPHILS % (AUTO) 70 % (42-75); PLATELET COUNT 292 x10^3/uL (130-400); RED CELL DISTRIBUTION WIDTH 13.4 % (9.6-15.2)
[2021-01-27 04:54] LABS: ALANINE AMINOTRANSFERASE 88 U/L (12-78); ALBUMIN 2.4 g/dL (3.4-5.0); ANION GAP 1 mmol/L (5-15); CALCIUM 8.2 mg/dL (8.5-10.1); CHLORIDE 109 mmol/L (98-107); CREATININE 0.71 mg/dL (0.55-1.02)
[2021-01-27 04:57] LABS: ALKALINE PHOSPHATASE 53 U/L (45-117); BILIRUBIN,TOTAL 0.7 mg/dL (0.2-1.0); TOTAL PROTEIN 5.9 g/dL (6.4-8.2)
[2021-01-27] MEDS: INSULIN LISPRO 100 UNITS/ML, PEN SQ-INSULIN SCH ×4 (05:33→22:44)
[2021-01-27] MEDS: LINEZOLID PMX 600MG/300ML 300 ML IV SCH ×2 (08:36→20:25)
[2021-01-27] MEDS: FAMOTIDINE 20 MG/2 ML IV SCH ×2 (08:37→20:24)
[2021-01-27] MEDS: POTASSIUM CHLORIDE 20 MEQ PACKET PO SCH (08:38)
[2021-01-27] MEDS: DOCUSATE 50 MG/5 ML, 10ML UDC PO SCH (08:38)
[2021-01-27] MEDS: ENOXAPARIN 80 MG/0.8 ML SQ SCH ×2 (08:38→20:24)
[2021-01-27] MEDS: INSULIN GLARGINE 100 UNITS/ML, PEN SQ-INSULIN SCH ×2 (10:52→22:43)
[2021-01-27] MEDS: MIDAZOLAM HCL 50 MG in SODIUM CHLORIDE 0.9% 40 ML IV PRN (12:17)
[2021-01-27] MEDS: NOREPINEPHRINE 8 MG in SODIUM CHLORIDE 0.9% 242 ML IV PRN (12:17)
[2021-01-27] MEDS: LACTULOSE 20 GM/30 ML UDC PO PRN (20:24)
[2021-01-28] MEDS: FENTANYL PF 100 MCG/2ML IVPush PRN ×2 (01:41→05:18)
[2021-01-28] MEDS: MEROPENEM 1 GM in SODIUM CHLORIDE 0.9% 100 ML IV SCH ×3 (01:41→16:50)
[2021-01-28 04:32] LABS: BASOPHILS % (AUTO) 1 % (0-1); EOSINOPHILS % (AUTO) 3 % (1-7); LYMPHOCYTES % (AUTO) 24 % (22-44); MEAN CORPUSCULAR HEMOGLOBIN 30.7 pg (27.0-34.8); MEAN CORPUSCULAR HGB CONC 32.9 g/dL (32.4-35.8); MEAN PLATELET VOLUME 9.3 fL (7.4-10.4); MONOCYTES % (AUTO) 2 % (2-9); NEUTROPHILS % (AUTO) 71 % (42-75); PLATELET COUNT 289 x10^3/uL (130-400); RED BLOOD COUNT 2.79 x10^6/uL (3.82-5.3); RED CELL DISTRIBUTION WIDTH 13.6 % (9.6-15.2)
[2021-01-28 04:43] LABS: ALBUMIN 2.1 g/dL (3.4-5.0); ANION GAP 3 mmol/L (5-15); CALCIUM 7.6 mg/dL (8.5-10.1); CHLORIDE 110 mmol/L (98-107)
[2021-01-28 04:48] LABS: ALANINE AMINOTRANSFERASE 79 U/L (12-78); ALKALINE PHOSPHATASE 56 U/L (45-117); BILIRUBIN,TOTAL 0.8 mg/dL (0.2-1.0); CREATININE 0.56 mg/dL (0.55-1.02); TOTAL PROTEIN 5.3 g/dL (6.4-8.2)
[2021-01-28] MEDS: INSULIN LISPRO 100 UNITS/ML, PEN SQ-INSULIN SCH ×4 (05:00→23:00)
[2021-01-28] MEDS: LINEZOLID PMX 600MG/300ML 300 ML IV SCH ×2 (07:45→21:26)
[2021-01-28] MEDS: DOCUSATE 50 MG/5 ML, 10ML UDC PO SCH (07:45)
[2021-01-28] MEDS: ENOXAPARIN 80 MG/0.8 ML SQ SCH ×2 (07:45→21:25)
[2021-01-28] MEDS: FAMOTIDINE 20 MG/2 ML IV SCH ×2 (07:45→21:26)
[2021-01-28] MEDS: POTASSIUM CHLORIDE 20 MEQ PACKET PO SCH (07:45)
[2021-01-28] MEDS: MIDAZOLAM HCL 50 MG in SODIUM CHLORIDE 0.9% 40 ML IV PRN (07:46)
[2021-01-28] MEDS: NOREPINEPHRINE 8 MG in SODIUM CHLORIDE 0.9% 242 ML IV PRN (07:46)
[2021-01-28] MEDS: INSULIN GLARGINE 100 UNITS/ML, PEN SQ-INSULIN SCH (10:17)
[2021-01-29] MEDS: INSULIN GLARGINE 100 UNITS/ML, PEN SQ-INSULIN SCH ×3 (00:03→21:43)
[2021-01-29] MEDS: MEROPENEM 1 GM in SODIUM CHLORIDE 0.9% 100 ML IV SCH ×3 (01:43→17:03)
[2021-01-29] MEDS: MIDAZOLAM HCL 50 MG in SODIUM CHLORIDE 0.9% 40 ML IV PRN ×2 (01:44→16:11)
[2021-01-29 04:48] LABS: BASOPHILS % (AUTO) 0 % (0-1); EOSINOPHILS % (AUTO) 7 % (1-7); LYMPHOCYTES % (AUTO) 28 % (22-44); MEAN CORPUSCULAR HGB CONC 33.1 g/dL (32.4-35.8); MEAN PLATELET VOLUME 8.6 fL (7.4-10.4); MONOCYTES % (AUTO) 2 % (2-9); NEUTROPHILS % (AUTO) 63 % (42-75); PLATELET COUNT 260 x10^3/uL (130-400); RED BLOOD COUNT 2.56 x10^6/uL (3.82-5.3); RED CELL DISTRIBUTION WIDTH 14.1 % (9.6-15.2)
[2021-01-29 04:56] LABS: ALANINE AMINOTRANSFERASE 127 U/L (12-78); ALBUMIN 1.8 g/dL (3.4-5.0); CALCIUM 7.6 mg/dL (8.5-10.1); CHLORIDE 112 mmol/L (98-107); TRIGLYCERIDES 143 mg/dL (50-200)
[2021-01-29] MEDS: INSULIN LISPRO 100 UNITS/ML, PEN SQ-INSULIN SCH ×4 (05:00→21:43)
[2021-01-29 05:08] LABS: ALKALINE PHOSPHATASE 80 U/L (45-117); ANION GAP 3 mmol/L (5-15); BILIRUBIN,TOTAL 1.2 mg/dL (0.2-1.0); TOTAL PROTEIN 5.1 g/dL (6.4-8.2)
[2021-01-29] MEDS: DOCUSATE 50 MG/5 ML, 10ML UDC PO SCH (08:13)
[2021-01-29] MEDS: POTASSIUM CHLORIDE 20 MEQ PACKET PO SCH (08:20)
[2021-01-29] MEDS: ENOXAPARIN 80 MG/0.8 ML SQ SCH ×2 (08:20→21:21)
[2021-01-29] MEDS: FAMOTIDINE 20 MG/2 ML IV SCH ×2 (08:20→21:21)
[2021-01-29] MEDS: LINEZOLID PMX 600MG/300ML 300 ML IV SCH ×2 (09:12→21:21)
[2021-01-29] MEDS: NOREPINEPHRINE 8 MG in SODIUM CHLORIDE 0.9% 242 ML IV PRN (18:28)
[2021-01-30 02:20] LABS: BASOPHILS % (AUTO) 1 % (0-1); EOSINOPHILS % (AUTO) 6 % (1-7); LYMPHOCYTES % (AUTO) 27 % (22-44); MEAN CORPUSCULAR HEMOGLOBIN 31.7 pg (27.0-34.8); MEAN CORPUSCULAR HGB CONC 33.5 g/dL (32.4-35.8); MEAN PLATELET VOLUME 8.3 fL (7.4-10.4); MONOCYTES % (AUTO) 2 % (2-9); NEUTROPHILS % (AUTO) 64 % (42-75); PLATELET COUNT 239 x10^3/uL (130-400); RED BLOOD COUNT 2.57 x10^6/uL (3.82-5.3); RED CELL DISTRIBUTION WIDTH 14.5 % (9.6-15.2)
[2021-01-30 02:29] LABS: ALANINE AMINOTRANSFERASE 159 U/L (12-78); ALBUMIN 1.9 g/dL (3.4-5.0); ANION GAP 3 mmol/L (5-15); CALCIUM 7.7 mg/dL (8.5-10.1); CHLORIDE 110 mmol/L (98-107); CREATININE 0.34 mg/dL (0.55-1.02)
[2021-01-30] MEDS: MEROPENEM 1 GM in SODIUM CHLORIDE 0.9% 100 ML IV SCH ×3 (02:31→16:57)
[2021-01-30 02:32] LABS: ALKALINE PHOSPHATASE 96 U/L (45-117); BILIRUBIN,TOTAL 0.9 mg/dL (0.2-1.0); TOTAL PROTEIN 5.5 g/dL (6.4-8.2)
[2021-01-30] MEDS: INSULIN LISPRO 100 UNITS/ML, PEN SQ-INSULIN SCH ×4 (05:00→20:54)
[2021-01-30] MEDS: DOCUSATE 50 MG/5 ML, 10ML UDC PO SCH (08:15)
[2021-01-30] MEDS: FAMOTIDINE 20 MG/2 ML IV SCH ×2 (08:15→20:52)
[2021-01-30] MEDS: FUROSEMIDE 20 MG/2 ML IV SCH ×2 (08:15→16:56)
[2021-01-30] MEDS: ENOXAPARIN 80 MG/0.8 ML SQ SCH ×2 (08:16→20:53)
[2021-01-30] MEDS: MIDAZOLAM HCL 50 MG in SODIUM CHLORIDE 0.9% 40 ML IV PRN ×2 (08:22→23:20)
[2021-01-30] MEDS: NOREPINEPHRINE 8 MG in SODIUM CHLORIDE 0.9% 242 ML IV PRN (08:22)
[2021-01-30] MEDS: INSULIN GLARGINE 100 UNITS/ML, PEN SQ-INSULIN SCH ×2 (10:14→20:54)
[2021-01-31] MEDS: NOREPINEPHRINE 8 MG in SODIUM CHLORIDE 0.9% 242 ML IV PRN ×3 (00:34→23:46)
[2021-01-31] MEDS: MEROPENEM 1 GM in SODIUM CHLORIDE 0.9% 100 ML IV SCH ×3 (01:53→17:19)
[2021-01-31 04:55] LABS: ALBUMIN 1.9 g/dL (3.4-5.0); ANION GAP 3 mmol/L (5-15); CALCIUM 7.9 mg/dL (8.5-10.1); CHLORIDE 109 mmol/L (98-107)
[2021-01-31 04:58] LABS: MEAN CORPUSCULAR HEMOGLOBIN 31.3 pg (27.0-34.8); MEAN PLATELET VOLUME 8.4 fL (7.4-10.4); PLATELET COUNT 238 x10^3/uL (130-400); RED BLOOD COUNT 2.59 x10^6/uL (3.82-5.3); RED CELL DISTRIBUTION WIDTH 14.9 % (9.6-15.2)
[2021-01-31 04:59] LABS: ALANINE AMINOTRANSFERASE 175 U/L (12-78); ALKALINE PHOSPHATASE 109 U/L (45-117); BILIRUBIN,TOTAL 0.9 mg/dL (0.2-1.0); CREATININE 0.34 mg/dL (0.55-1.02)
[2021-01-31] MEDS: INSULIN LISPRO 100 UNITS/ML, PEN SQ-INSULIN SCH ×4 (05:00→20:56)
[2021-01-31 06:16] LABS: EOS#(MANUAL) 0.42 x10^3/uL (0.0-0.4); EOS% (MANUAL) 5 % (1-7); LYMPH#(MANUAL) 2.77 x10^3/uL (1-3.4); LYMPHS% (MANUAL) 33 % (22-44); MONOS#(MANUAL) 0.42 x10^3/uL (0.3-2.7); MONOS% (MANUAL) 5 % (2-9); SEG#(MANUAL) 4.79 x10^3/uL (1.8-6.8); SEGS% (MANUAL) 57 % (42-75)
[2021-01-31 06:17] LABS: <PLATELET ESTIMATE> ADEQUATE; <PLT MORPHOLOGY> NORMAL PLT MORPH; POLYCHROMASIA 1+
[2021-01-31] MEDS: MIDAZOLAM HCL 50 MG in SODIUM CHLORIDE 0.9% 40 ML IV PRN ×3 (07:38→20:59)
[2021-01-31] MEDS: ENOXAPARIN 80 MG/0.8 ML SQ SCH (08:11)
[2021-01-31] MEDS: DOCUSATE 50 MG/5 ML, 10ML UDC PO SCH (08:11)
[2021-01-31] MEDS: FAMOTIDINE 20 MG/2 ML IV SCH ×2 (08:20→20:56)
[2021-01-31] MEDS: FUROSEMIDE 20 MG/2 ML IV SCH ×2 (08:20→17:19)
[2021-01-31] MEDS: FENTANYL PF 100 MCG/2ML IVPush PRN ×3 (08:21→18:35)
[2021-01-31] MEDS ORDERED: PROPOFOL 100 ML IV SCH (09:00)
[2021-01-31] MEDS: INSULIN GLARGINE 100 UNITS/ML, PEN SQ-INSULIN SCH ×2 (11:38→20:58)
[2021-02-01] MEDS: MEROPENEM 1 GM in SODIUM CHLORIDE 0.9% 100 ML IV SCH ×3 (02:19→17:35)
[2021-02-01] MEDS: INSULIN LISPRO 100 UNITS/ML, PEN SQ-INSULIN SCH ×4 (03:00→21:00)
[2021-02-01] MEDS: MIDAZOLAM HCL 50 MG in SODIUM CHLORIDE 0.9% 40 ML IV PRN (04:41)
[2021-02-01 05:04] LABS: MEAN CORPUSCULAR HGB CONC 33.8 g/dL (32.4-35.8); PLATELET COUNT 241 x10^3/uL (130-400); RED BLOOD COUNT 2.53 x10^6/uL (3.82-5.3); RED CELL DISTRIBUTION WIDTH 16.3 % (9.6-15.2)
[2021-02-01 05:21] LABS: CHLORIDE 107 mmol/L (98-107)
[2021-02-01 05:29] LABS: ALANINE AMINOTRANSFERASE 177 U/L (12-78); ALBUMIN 1.8 g/dL (3.4-5.0); ALKALINE PHOSPHATASE 131 U/L (45-117); ANION GAP 4 mmol/L (5-15); CALCIUM 7.8 mg/dL (8.5-10.1); CREATININE 0.31 mg/dL (0.55-1.02); TOTAL PROTEIN 6.2 g/dL (6.4-8.2); TRIGLYCERIDES 148 mg/dL (50-200)
[2021-02-01 05:47] LABS: ANISOCYTOSIS 1+; BANDS%(MANUAL) 5 % (0-7); EOS% (MANUAL) 4 % (1-7); LYMPHS% (MANUAL) 28 % (22-44); METAMYELOCYTES% (MANUAL) 1 % (0-1); MONOS% (MANUAL) 2 % (2-9); POLYCHROMASIA 1+; SEGS% (MANUAL) 60 % (42-75)
[2021-02-01 05:48] LABS: <PLATELET ESTIMATE> ADEQUATE; <PLT MORPHOLOGY> NORMAL PLT MORPH
[2021-02-01] MEDS: NOREPINEPHRINE 8 MG in SODIUM CHLORIDE 0.9% 242 ML IV PRN ×2 (08:59→21:05)
[2021-02-01] MEDS: FAMOTIDINE 20 MG/2 ML IV SCH ×2 (09:00→21:05)
[2021-02-01] MEDS: FUROSEMIDE 20 MG/2 ML IV SCH ×2 (09:00→17:25)
[2021-02-01] MEDS: DEXMEDETOMIDINE 200 MCG in SODIUM CHLORIDE 0.9% 48 ML IV PRN ×3 (09:01→21:05)
[2021-02-01] MEDS: DOCUSATE 50 MG/5 ML, 10ML UDC PO SCH (09:03)
[2021-02-01] MEDS: INSULIN GLARGINE 100 UNITS/ML, PEN SQ-INSULIN SCH ×2 (09:06→21:00)
[2021-02-01] MEDS: MIDODRINE 5 MG TABLET PO SCH ×3 (09:09→21:05)
[2021-02-02] MEDS: DEXMEDETOMIDINE 400 MCG in SODIUM CHLORIDE 0.9% 96 ML IV PRN ×2 (01:23→10:28)
[2021-02-02] MEDS: MEROPENEM 1 GM in SODIUM CHLORIDE 0.9% 100 ML IV SCH (01:23)
[2021-02-02] MEDS: INSULIN LISPRO 100 UNITS/ML, PEN SQ-INSULIN SCH ×2 (03:00→10:08)
[2021-02-02 04:26] LABS: ALBUMIN 2.1 g/dL (3.4-5.0); ANION GAP 5 mmol/L (5-15); CALCIUM 8.2 mg/dL (8.5-10.1); CHLORIDE 107 mmol/L (98-107)
[2021-02-02 04:28] LABS: MEAN CORPUSCULAR HEMOGLOBIN 31.4 pg (27.0-34.8); MEAN CORPUSCULAR HGB CONC 33.4 g/dL (32.4-35.8); MEAN PLATELET VOLUME 7.9 fL (7.4-10.4); PLATELET COUNT 259 x10^3/uL (130-400); RED BLOOD COUNT 2.69 x10^6/uL (3.82-5.3); RED CELL DISTRIBUTION WIDTH 16.1 % (9.6-15.2)
[2021-02-02 04:32] LABS: ALANINE AMINOTRANSFERASE 150 U/L (12-78); ALKALINE PHOSPHATASE 167 U/L (45-117); TOTAL PROTEIN 6.7 g/dL (6.4-8.2)
[2021-02-02 05:47] LABS: BAND#(MANUAL) 0.18 x10^3/uL; BANDS%(MANUAL) 2 % (0-7); METAMYELOCYTES# (MANUAL) 0.09 x10^3/uL (0-0); METAMYELOCYTES% (MANUAL) 1 % (0-1); MONOS#(MANUAL) 0.18 x10^3/uL (0.3-2.7); MONOS% (MANUAL) 2 % (2-9); SEG#(MANUAL) 5.73 x10^3/uL (1.8-6.8); SEGS% (MANUAL) 63 % (42-75)
[2021-02-02 05:48] LABS: ANISOCYTOSIS 1+; EOS#(MANUAL) 0.64 x10^3/uL (0.0-0.4); EOS% (MANUAL) 7 % (1-7); LYMPH#(MANUAL) 2.28 x10^3/uL (1-3.4); LYMPHS% (MANUAL) 25 % (22-44); POLYCHROMASIA 1+
[2021-02-02 05:49] LABS: <PLATELET ESTIMATE> ADEQUATE; <PLT MORPHOLOGY> NORMAL PLT MORPH
[2021-02-02] MEDS: FAMOTIDINE 20 MG/2 ML IV SCH (10:07)
[2021-02-02] MEDS: FUROSEMIDE 20 MG/2 ML IV SCH (10:07)
[2021-02-02] MEDS: DOCUSATE 50 MG/5 ML, 10ML UDC PO SCH (10:07)
[2021-02-02] MEDS: MIDODRINE 5 MG TABLET PO SCH (10:08)
[2021-02-02] MEDS: FENTANYL PF 100 MCG/2ML IVPush PRN (10:08)
[2021-02-02] MEDS ORDERED: INSULIN GLARGINE 100 UNITS/ML, PEN SQ-INSULIN SCH (10:30)
[2021-02-02] MEDS: NOREPINEPHRINE 8 MG in SODIUM CHLORIDE 0.9% 242 ML IV PRN (12:08)
[2021-02-02] MEDS ORDERED: INSU100I13 SQ-INSULIN (12:18)
[2021-02-02] MEDS ORDERED: ONDA4VIA60 IVPush (12:18)
[2021-02-02] MEDS ORDERED: LIDO10VI34 ENDO (12:18)
[2021-02-02] MEDS ORDERED: FENT50VI28 IVPush (12:18)
[2021-02-02] MEDS ORDERED: INSU100I11 SQ-INSULIN (12:18)
[2021-02-02] MEDS ORDERED: HYDR-3241 PO (12:18)
[2021-02-02] MEDS ORDERED: MIDO5TAB9 PO (12:18)
[2021-02-02] MEDS ORDERED: FAMO20VI3 IV (12:18)
[2021-02-02] MEDS ORDERED: FURO10VI37 IV (12:18)
== END 2021-02-02 15:14 | disposition short-term general hospital (02) | DRG 870 ==
LOC: ED 22:15 → EDIP 01-12 00:15 → 3N 01-12 01:20 → ICU 01-14 07:28 → CCU 01-14 08:00 → ICU 01-20 09:31
PROVIDERS: ADMIT Internal Medicine; ATTEND Internal Medicine
PROC: XW033E5 Introduction of Remdesivir Anti-infective into Peripheral Vein, Percutaneous Approach, New Technology Group 5 (ICD-10-PCS; 2021-01-13)
PROC: 5A1955Z Respiratory Ventilation, Greater than 96 Consecutive Hours (ICD-10-PCS; principal; 2021-01-14)
PROC: 0BH17EZ Insertion of Endotracheal Airway into Trachea, Via Natural or Artificial Opening (ICD-10-PCS; 2021-01-14)
PROC: 0T9B70Z Drainage of Bladder with Drainage Device, Via Natural or Artificial Opening (ICD-10-PCS; 2021-01-14)
PROC: 02H633Z Insertion of Infusion Device into Right Atrium, Percutaneous Approach (ICD-10-PCS; 2021-01-14)
DX: A41.89 Other specified sepsis (principal); J96.01 Acute respiratory failure with hypoxia; J12.82 Pneumonia due to coronavirus disease 2019; U07.1 COVID-19; J93.9 Pneumothorax, unspecified; K92.2 Gastrointestinal hemorrhage, unspecified; L76.32 Postprocedural hematoma of skin and subcutaneous tissue following other procedure; R57.9 Shock, unspecified; T79.7XXA Traumatic subcutaneous emphysema, initial encounter; Z99.11 Dependence on respirator [ventilator] status; E63.9 Nutritional deficiency, unspecified; E66.9 Obesity, unspecified; E87.6 Hypokalemia; E88.09 Other disorders of plasma-protein metabolism, not elsewhere classified; M06.9 Rheumatoid arthritis, unspecified; Y84.8 Other medical procedures as the cause of abnormal reaction of the patient, or of later complication, without mention of misadventure at the time of the procedure; R74.01 Elevation of levels of liver transaminase levels; S30.1XXA Contusion of abdominal wall, initial encounter; Z68.33 Body mass index [BMI] 33.0-33.9, adult
CPT/HCPCS: 36415; 36600; 71045; 71275; 74018; 76705; 80053; 81001; 82728; 82803; 82805; 82962; 83615; 83690; 83735; 84100; 84145; 84478; 84484; 84703; 85014; 85018; 85025; 85379; 85384; 85610; 85651; 85730; 86140; 86803; 87040; 87070; 87081; 87205; 93306; 94002; 94003; 96361; 96365; 96368; 99291; G0378; J0456; J0696; J1100; J1650; J1940; J2020; J2185; J2250; J2704; J3010; J7120; Q0162; Q9967; U0005; J1120; J1815; J2060; J2920; J3262; J7030; J7050; U0003